=== PATIENT | female | born 1945 | race Two or more races ===

== ENCOUNTER 2018-09-06 12:11 | Inpatient (IN) | payer OTHER ==
[2018-09-06 13:29] LABS: BASO % 0.8 % (0-2.0); EOS % 3.6 % (0-4.5); HEMATOCRIT 40.6 % (32.4-45.2); HEMOGLOBIN 12.8 GM/dL (10.7-15.3); LYMPH % 29.7 % (8-40); MCH 25.7 pg (25.7-33.7); MCHC 31.6 g/dl (32.0-36.0); MEAN CELL VOLUME 81.2 fl (80-96); MEAN PLT VOLUME 9.2 fl (7.5-11.1); MONO % 8.9 % (3.8-10.2); PLATELET COUNT 250 K/MM3 (134-434); RDW 15.3 % (11.6-15.6)
[2018-09-06] MEDS ORDERED: methylPREDNISolone NA SUCC 125 MG/2 ML VIAL IVPUSH ONE (13:34)
[2018-09-06] MEDS ORDERED: ALBUTEROL SO4 2.5/IPRATROPIUM 0.5 INH SOL 3 ML VIAL.NEB. NEB ONE (13:50)
[2018-09-06] MEDS ORDERED: methylPREDNISolone NA SUCC 125 MG/2 ML VIAL ONE (13:51)
[2018-09-06] MEDS: ALBUTEROL SO4 2.5/IPRATROPIUM 0.5 INH SOL 3 ML VIAL.NEB. NEB SCH ×4 (13:53→14:54)
[2018-09-06 13:59] LABS: ALBUMIN 3.6 g/dl (3.4-5.0); ALK PHOS 92 U/L (45-117); ANION GAP 8 MMOL/L (8-16); BILIRUBIN,TOTAL 0.4 mg/dL (0.2-1); BLOOD UREA NITROGEN 12 mg/dL (7-18); CHLORIDE 100 mmol/L (98-107); CO2 33 mmol/L (21-32); CREATININE 0.8 mg/dL (0.55-1.3); GLUCOSE,RANDOM 150 mg/dL (74-106); POTASSIUM 3.5 mmol/L (3.5-5.1); SGOT/AST 30 U/L (15-37); SGPT/ALT 18 U/L (13-61); SODIUM 141 mmol/L (136-145); TOT PROT 7.4 g/dl (6.4-8.2)
--- NOTE | 2018-09-06 14:21 | PDOC ---
History of Present Illness - General Chief Complaint: Shortness of Breath Stated Complaint: CONGESTION Time Seen by Provider: 09/06/18 12:47 History Source: Patient - History of Present Illness Timing/Duration: reports: week Associated Symptoms: reports: cough, shortness of breath, wheezing. denies: earache, fever/chills Past History - Past Medical History Allergies/Adverse Reactions: Allergies Allergy/AdvReac Type Severity Reaction Status Date / Time aspirin Allergy Unknown Verified 09/06/18 12:23 Penicillins Allergy Unknown Verified 09/06/18 12:23 Home Medications: Ambulatory Orders Albuterol Sulfate Inhaler - [Ventolin Hfa Inhaler -] 1 - 2 inh PO QID 09/06/18 Amlodipine Besylate [Norvasc -] 5 mg PO DAILY 09/06/18 Atenolol [Tenormin] 100 mg PO DAILY 09/06/18 Budesonide/Formeterol Fumarate [SYMBICORT 160/4.5mcg -] 1 inh PO BID 09/06/18 Chlorthalidone 50 mg PO DAILY 09/06/18 Montelukast Na [Singulair -] 10 mg PO HS 09/06/18 Omeprazole 20 mg PO DAILY 09/06/18 Rosuvastatin [Crestor -] 10 mg PO DAILY 09/06/18 Asthma: Yes COPD: No Diabetes: No HTN: Yes - Suicide/Smoking/Psychosocial Hx Smoking History: Never smoked Hx Alcohol Use: No Drug/Substance Use Hx: No Substance Use Type: None Review of Systems - Review of Systems Constitutional: No: Chills, Fever Respiratory: Yes: Cough, Shortness of Breath, Wheezing Cardiac (ROS): No: Chest Pain ABD/GI: Yes: Nausea, Vomiting *Physical Exam - Vital Signs Last Vital Signs Temp Pulse Resp BP Pulse Ox 98.5 F 96 H 26 H 163/78 97 09/06/18 12:24 09/06/18 12:24 09/06/18 12:24 09/06/18 12:24 09/06/18 12:24 - Physical Exam General Appearance: Yes: Appropriately Dressed. No: Apparent Distress HEENT: positive: Normal Voice Neck: positive: Supple Respiratory/Chest: positive: Wheezing. negative: Respiratory Distress Cardiovascular: positive: Regular Rate, S1, S2 Gastrointestinal/Abdominal: positive: Soft. negative: Tender Extremity: positive: Normal Inspection. negative: Pedal Edema Integumentary: positive: Dry, Warm Neurologic: positive: Fully Oriented, Alert, Normal Mood/Affect ED Treatment Course - LABORATORY CBC & Chemistry Diagram: 09/06/18 13:20 09/06/18 13:20 - ADDITIONAL ORDERS Additional order review: Laboratory Results 09/06/18 13:20 Sodium 141 Potassium 3.5 Chloride 100 Carbon Dioxide 33 H Anion Gap 8 BUN 12 Creatinine 0.8 Creat Clearance w eGFR > 60 Random Glucose 150 H Calcium 9.0 Total Bilirubin 0.4 AST 30 ALT 18 Alkaline Phosphatase 92 Creatine Kinase 128 Troponin I < 0.02 B-Natriuretic Peptide 63.0 Total Protein 7.4 Albumin 3.6 09/06/18 13:20 RBC 5.00 MCV 81.2 MCHC 31.6 L RDW 15.3 MPV 9.2 Neutrophils % 57.0 Lymphocytes % 29.7 Monocytes % 8.9 Eosinophils % 3.6 Basophils % 0.8 - RADIOLOGY Radiology Studies Ordered: Category Date Time Status CHEST X-RAY PORTABLE* [RAD] Stat Radiology 09/06/18 12:48 Taken - Medications Given in the ED: ED Medications Discontinued Medications Generic Name Dose Route Start Last Admin Trade Name Freq PRN Reason Stop Dose Admin Methylprednisolone Sodium Succinate 125 mg 09/06/18 13:34 09/06/18 14:06 Solu-Medrol - IVPUSH 09/06/18 13:35 125 mg ONCE ONE Administration Medical Decision Making - Medical Decision Making 09/06/18 14:18 73-year-old female, history of hypertension, asthma, no admissions or intubations, uses alb pump and nebulizer machine at home, here with chest tightness and SOB 1 week, similar to her asthma, but not being relieved with asthma meds. Also complaining of dry cough, no chest pain, fever or chills. See exam Asthma flare Tachypneic at triage but stable otherwise w/ diffuse wheezing -duoneb -solumedrol -ekg -cxr -labs -dispo pending 09/06/18 16:27 Labs and CXR unremarkable. On reassessment, patient reports feeling mildly better, but continues to have diffuse wheezing on exam. Will give dose of mag at this time and admit to obs for serial nebs 09/06/18 16:42 *DC/Admit/Observation/Transfer Diagnosis at time of Disposition: Asthma flare Qualifiers: Asthma severity: unspecified severity Asthma persistence: unspecified Qualified Code(s): J45.901 - Unspecified asthma with (acute) exacerbation - Discharge Dispostion Condition at time of disposition: Fair Decision to Admit order: Yes - Referrals - Patient Instructions - Post Discharge Activity
--- NOTE | 2018-09-06 15:02 | EKG ---
Test Reason : Blood Pressure : / mmHG Vent. Rate : 083 BPM Atrial Rate : 083 BPM P-R Int : 180 ms QRS Dur : 076 ms QT Int : 382 ms P-R-T Axes : 060 018 046 degrees QTc Int : 448 ms NORMAL SINUS RHYTHM LOW VOLTAGE QRS POSSIBLE INFERIOR INFARCT , AGE UNDETERMINED ABNORMAL ECG WHEN COMPARED WITH ECG OF 19-MAY-2018 16:04, NONSPECIFIC T WAVE ABNORMALITY NOW EVIDENT IN INFERIOR LEADS NONSPECIFIC T WAVE ABNORMALITY NOW EVIDENT IN ANTERIOR LEADS Confirmed by ANANT ALCOCER MD ([id number]) on 09/06/2018 3:02:11 PM Referred By: Confirmed By:ANANT ALCOCER MD
[2018-09-06] MEDS ORDERED: MAGNESIUM SULF 50% (8.12 MEQ/2 ML-1 GM VIAL) IVPB ONE (16:27)
[2018-09-06] MEDS ORDERED: MAGNESIUM SULF 50% (8.12 MEQ/2 ML-1 GM VIAL) ONE (17:04)
[2018-09-06] MEDS ORDERED: ALBUTEROL SO4 2.5/IPRATROPIUM 0.5 INH SOL 3 ML VIAL.NEB. NEB PRN (19:39)
--- NOTE | 2018-09-06 20:08 | HP ---
CHIEF COMPLAINT: SOB, HODGES, Chest Tightness, Wheeze PCP: Dr. Dill HISTORY OF PRESENT ILLNESS: This is a 73 y/o woman with a PMHx of: Asthma, HTN, GERD, Allergic Rhinitis, OA. Who presents to the ED with her daughter for SOB, HODGES, chest tightness and wheezing x 7 days. Patient is [place] speaking, she requested her daughter translate. Per the daughter, patient reports using her nebulizer machine and her Asthma meds without relief. She reports having difficulty taking steps and doing activities at home without being SOB. Patient denies fever, chills, dizziness, CATALAN, palpitations, AP, N/V/D, constipation, dysuria. Patient denies recent travel or sick contact exposure. ER course was notable for: (1) Chest Xray- No active disease (2) Spo2 97-94% (3) Recent Travel: None PAST MEDICAL HISTORY: See HPI PAST SURGICAL HISTORY: Childbirth Social History: Smoking: Never Alcohol: None Drugs: None Lives at home alone has STERILIZATION TECH, daughter lives close by Family History: Allergies aspirin Allergy (Unknown, Verified 09/06/18 12:23) Penicillins Allergy (Unknown, Verified 09/06/18 12:23) HOME MEDICATIONS: Home Medications Medication Instructions Recorded Albuterol Sulfate Inhaler - 1 - 2 inh PO QID 09/06/18 [Ventolin Hfa Inhaler -] Amlodipine Besylate [Norvasc -] 5 mg PO DAILY 09/06/18 Atenolol [Tenormin] 100 mg PO DAILY 09/06/18 Budesonide/Formeterol Fumarate 1 inh PO BID 09/06/18 [SYMBICORT 160/4.5mcg -] Chlorthalidone 50 mg PO DAILY 09/06/18 Montelukast Na [Singulair -] 10 mg PO HS 09/06/18 Omeprazole 20 mg PO DAILY 09/06/18 Rosuvastatin [Crestor -] 10 mg PO DAILY 09/06/18 REVIEW OF SYSTEMS CONSTITUTIONAL: Absent: fever, chills, diaphoresis, generalized weakness, malaise, loss of appetite, weight change HEENT: Absent: rhinorrhea, nasal congestion, throat pain, throat swelling, difficulty swallowing, mouth swelling, ear pain, eye pain, visual changes CARDIOVASCULAR: Absent: chest pain, syncope, palpitations, irregular heart rate, lightheadedness , peripheral edema RESPIRATORY: cough, shortness of breath, dyspnea with exertion, orthopnea, wheezing, Absent: stridor, hemoptysis GASTROINTESTINAL: Absent: abdominal pain, abdominal distension, nausea, vomiting, diarrhea, constipation, melena, hematochezia GENITOURINARY: Absent: dysuria, frequency, urgency, hesitancy, hematuria, flank pain, genital pain MUSCULOSKELETAL: Absent: myalgia, arthralgia, joint swelling, back pain, neck pain SKIN: Absent: rash, itching, pallor HEMATOLOGIC/IMMUNOLOGIC: Absent: easy bleeding, easy bruising, lymphadenopathy, frequent infections ENDOCRINE: Absent: unexplained weight gain, unexplained weight loss, heat intolerance, cold intolerance NEUROLOGIC: Absent: headache, focal weakness or paresthesias, dizziness, unsteady gait, seizure, mental status changes, bladder or bowel incontinence PSYCHIATRIC: Absent: anxiety, depression, suicidal or homicidal ideation, hallucinations. PHYSICAL EXAMINATION Vital Signs - 24 hr 09/06/18 09/06/18 09/06/18 12:24 15:05 17:22 Temperature 98.5 F 98.4 F Pulse Rate 96 H Pulse Rate [ 102 H 102 H Apical] Respiratory 26 H 20 18 Rate Blood Pressure 163/78 Blood Pressure 157/77 130/75 [Left Arm] O2 Sat by Pulse 97 99 94 L Oximetry (%) GENERAL: Awake, alert, and fully oriented, in no acute distress. HEAD: Normal with no signs of trauma. EYES: Pupils equal, round and reactive to light, extraocular movements intact, sclera anicteric, conjunctiva clear. No lid lag. EARS, NOSE, THROAT: Ears normal, nares patent, oropharynx clear without exudates. Moist mucous membranes. NECK: Normal range of motion, supple without lymphadenopathy, JVD, or masses. LUNGS: Scattered Diffuse wheeze and crackles throughout. No accessory muscle use. HEART: Regular rate and rhythm, normal S1 and S2 without murmur, rub or gallop. ABDOMEN: Obese, soft, nontender, not distended, normoactive bowel sounds, no guarding, no rebound, no masses. No hepatomegaly or splenomegaly. MUSCULOSKELETAL: Normal range of motion at all joints. No bony deformities or tenderness. No CVA tenderness. UPPER EXTREMITIES: 2+ pulses, warm, well-perfused. No cyanosis. No clubbing. No peripheral edema. LOWER EXTREMITIES: 2+ pulses, warm, well-perfused. No calf tenderness. No peripheral edema. NEUROLOGICAL: Cranial nerves II-XII intact. Normal speech. Gait not observed. PSYCHIATRIC: Cooperative. Good eye contact. Appropriate mood and affect. SKIN: Warm, dry, normal turgor, no rashes or lesions noted, normal capillary refill. Laboratory Results - last 24 hr 09/06/18 09/06/18 13:20 13:20 WBC 9.0 RBC 5.00 Hgb 12.8 Hct 40.6 MCV 81.2 MCH 25.7 MCHC 31.6 L RDW 15.3 Plt Count 250 MPV 9.2 Absolute Neuts (auto) 5.2 Neutrophils % 57.0 Lymphocytes % 29.7 Monocytes % 8.9 Eosinophils % 3.6 Basophils % 0.8 Nucleated RBC % 0 Sodium 141 Potassium 3.5 Chloride 100 Carbon Dioxide 33 H Anion Gap 8 BUN 12 Creatinine 0.8 Creat Clearance w eGFR > 60 Random Glucose 150 H Calcium 9.0 Total Bilirubin 0.4 AST 30 ALT 18 Alkaline Phosphatase 92 Creatine Kinase 128 Troponin I < 0.02 B-Natriuretic Peptide 63.0 Total Protein 7.4 Albumin 3.6 ASSESSMENT/PLAN: This is a 73 y/o woman with a PMHx of Asthma, HTN, GERD, Allergic Rhinitis, OA. Placed on Observation for Acute Asthma Exacerbation for further evaluation of their emergent condition. FEN PO fluids as tolerated Replete lytes prn Low Na Diet Code Status: Full Code Dispo: Observation Problem List - Problem (1) Asthma exacerbation Assessment/Plan: Likely secondary to URI Chest Xray- no acute disease Given Solumederol, Magnesium Sulfate, Duonebs in the ED, patient reports some improvement Will continue Solumederol with taper Duonebs Appreciate Pulmonology consult Peak Flow O2 Monitor vitals Monitor CBC, BMP Code(s): J45.901 - UNSPECIFIED ASTHMA WITH (ACUTE) EXACERBATION (2) GERD (gastroesophageal reflux disease) Assessment/Plan: Stable Continue Omeprazole Code(s): K21.9 - GASTRO-ESOPHAGEAL REFLUX DISEASE WITHOUT ESOPHAGITIS (3) Osteoarthritis Assessment/Plan: Tylenol prn Code(s): M19.90 - UNSPECIFIED OSTEOARTHRITIS, UNSPECIFIED SITE (4) Allergic rhinitis Assessment/Plan: stable Consider Saline [place], Singular Code(s): J30.9 - ALLERGIC RHINITIS, UNSPECIFIED Visit type - Emergency Visit Emergency Visit: Yes ED Registration Date: 09/06/18 Care time: The patient presented to the Emergency Department on the above date and was hospitalized for further evaluation of their emergent condition. - New Patient This patient is new to me today: Yes Date on this admission: 09/06/18 - Critical Care Critical Care patient: No
[2018-09-06] MEDS ORDERED: IPRATROPIUM BR 0.02% 0.5 MG/2.5 ML VIAL.NEB. NEB ONE ×2 (20:58→21:04)
[2018-09-06] MEDS ORDERED: BUDESONIDE/FORMETEROL FUMARATE 160/4.5 mcg INHALER IH SCH (22:00)
[2018-09-06] MEDS: MONTELUKAST NA 10 MG TABLET PO SCH (22:26)
[2018-09-06] MEDS: ATENOLOL 50 MG TABLET (FP) PO SCH (22:26)
[2018-09-06] MEDS: ROSUVASTATIN CA 10 MG TABLET (FP) PO SCH (22:27)
[2018-09-07 07:14] LABS: BASO % 0.2 % (0-2.0); HEMATOCRIT 40.2 % (32.4-45.2); HEMOGLOBIN 12.6 GM/dL (10.7-15.3); LYMPH % 16.5 % (8-40); MCH 25.6 pg (25.7-33.7); MCHC 31.5 g/dl (32.0-36.0); MEAN CELL VOLUME 81.5 fl (80-96); MEAN PLT VOLUME 9.1 fl (7.5-11.1); MONO % 3.1 % (3.8-10.2); NEUT % 80.2 % (42.8-82.8); PLATELET COUNT 214 K/MM3 (134-434); RBC 4.93 M/mm3 (3.60-5.2); RDW 15.4 % (11.6-15.6); WHITE BLOOD COUNT 9.3 K/mm3 (4.0-10.0)
[2018-09-07 08:02] LABS: ANION GAP 13 MMOL/L (8-16); BLOOD UREA NITROGEN 15 mg/dL (7-18); CALCIUM 9.3 mg/dL (8.5-10.1); CHLORIDE 99 mmol/L (98-107); CO2 28 mmol/L (21-32); CREATININE 1.1 mg/dL (0.55-1.3); GLUCOSE,RANDOM 242 mg/dL (74-106); POTASSIUM 3.5 mmol/L (3.5-5.1); SODIUM 140 mmol/L (136-145)
[2018-09-07] MEDS ORDERED: PNEUMOC 13-VAL CONJ-DIP CRM/PF 0.5 ML DISP.SYRIN IM ONE (09:00)
[2018-09-07] MEDS: amLODIPine BESYLATE 5 MG TABLET (FP) PO SCH (09:40)
[2018-09-07] MEDS: PANTOPRAZOLE 20 MG TABLET (FP) PO SCH (09:40)
[2018-09-07] MEDS: CHLORTHALIDONE 25 MG TABLET PO SCH (09:41)
[2018-09-07] MEDS: BUDESONIDE/FORMETEROL FUMARATE 80/4.5 mcg INHALER IH SCH ×2 (09:42→22:24)
[2018-09-07] MEDS ORDERED: ATENOLOL 50 MG TABLET (FP) PO SCH (10:00)
--- NOTE | 2018-09-07 10:02 | CON.PULM ---
Consult Consult Specialty:: PULM/CCM Referred by:: HERIBERTO Reason for Consultation:: SOB - History of Present Illness Chief Complaint: SOB History of Present Illness: 73 F, Asthma (never intubated, non-steroid dependent, unknown PEF), HTN, GERD, Allergic Rhinitis, and OA. Admitted via the ED due to SOB, HODGES, chest tightness , and wheezing x 1 week. Apparently she has been using her nebulizer very frequently without relief. No apparent travel history or sick contact. No fever or chills. No night sweats or hemoptysis. She does snore but has never been screened for OSAS. CXR: clear - History Source History Provided By: Patient Limitations to Obtaining History: Language Barrier - Past Medical History Pulmonary: Yes: Asthma, Bronchitis. No: Cancer, COPD, O2 Dependent, Pneumonia, Previously Intubated, Pulmonary Embolus, Pulmonary Fibrosis - Alcohol/Substance Use Hx Alcohol Use: No - Smoking History Smoking history: Never smoked Have you smoked in the past 12 months: No Home Medications - Allergies Allergies/Adverse Reactions: Allergies Allergy/AdvReac Type Severity Reaction Status Date / Time aspirin Allergy Unknown Verified 09/06/18 12:23 Penicillins Allergy Unknown Verified 09/06/18 12:23 - Home Medications Home Medications: Ambulatory Orders Albuterol Sulfate Inhaler - [Ventolin Hfa Inhaler -] 1 - 2 inh PO QID 09/06/18 Amlodipine Besylate [Norvasc -] 5 mg PO DAILY 09/06/18 Atenolol [Tenormin] 100 mg PO DAILY 09/06/18 Budesonide/Formeterol Fumarate [SYMBICORT 160/4.5mcg -] 1 inh PO BID 09/06/18 Chlorthalidone 50 mg PO DAILY 09/06/18 Montelukast Na [Singulair -] 10 mg PO HS 09/06/18 Omeprazole 20 mg PO DAILY 09/06/18 Rosuvastatin [Crestor -] 10 mg PO DAILY 09/06/18 Review of Systems - Review of Systems Constitutional: reports: Malaise. denies: Chills, Fever, Night Sweats Eyes: reports: No Symptoms HENT: reports: No Symptoms Neck: reports: No Symptoms Cardiovascular: reports: Shortness of Breath. denies: Chest Pain, Edema, Palpitations Respiratory: reports: Cough, Snoring, SOB, SOB on Exertion, Wheezing. denies: Hemoptysis Gastrointestinal: reports: No Symptoms Genitourinary: reports: No Symptoms Breasts: reports: No Symptoms Reported Musculoskeletal: reports: No Symptoms Integumentary: reports: No Symptoms Neurological: reports: No Symptoms Endocrine: reports: No Symptoms Hematology/Lymphatic: reports: No Symptoms Psychiatric: reports: No Symptoms Physical Exam Vital Sings: Vital Signs Temperature 98.8 F 09/07/18 09:00 Pulse Rate 78 09/07/18 09:00 Respiratory Rate 18 09/07/18 09:00 Blood Pressure 143/85 09/07/18 09:00 O2 Sat by Pulse Oximetry (%) 96 09/07/18 03:33 Constitutional: Yes: No Distress, Obese Eyes: Yes: Conjunctiva Clear, EOM Intact HENT: Yes: Atraumatic, Normocephalic Neck: Yes: Supple, Trachea Midline Cardiovascular: Yes: Regular Rate and Rhythm Respiratory: Yes: Cough, Diminished, Rhonchi, SOB, SOB on Exertion, Tachypnea, Wheezes. No: Accessory Muscle Use, Rales, Stridor ...Inspection: Yes: WNL ...Clubbing: No Gastrointestinal: Yes: Normal Bowel Sounds, Soft Renal/: Yes: WNL Musculoskeletal: Yes: WNL Extremities: Yes: WNL Edema: No Peripheral Pulses WNL: Yes Integumentary: Yes: WNL Neurological: Yes: WNL, Alert, Oriented ...Motor Strength: WNL Psychiatric: Yes: WNL, Alert, Oriented Labs: CBC, BMP 09/07/18 06:00 09/07/18 06:00 Imaging - Results Chest X-ray: Report Reviewed, Image Reviewed Problem List - Problems (1) Acute bronchitis Code(s): J20.9 - ACUTE BRONCHITIS, UNSPECIFIED (2) Allergic rhinitis Code(s): J30.9 - ALLERGIC RHINITIS, UNSPECIFIED (3) Asthma exacerbation Code(s): J45.901 - UNSPECIFIED ASTHMA WITH (ACUTE) EXACERBATION (4) GERD (gastroesophageal reflux disease) Code(s): K21.9 - GASTRO-ESOPHAGEAL REFLUX DISEASE WITHOUT ESOPHAGITIS (5) Osteoarthritis Code(s): M19.90 - UNSPECIFIED OSTEOARTHRITIS, UNSPECIFIED SITE (6) Hypertension Code(s): I10 - ESSENTIAL (PRIMARY) HYPERTENSION Assessment/Plan Solumedrol IV BD TX standing and PRN Would monitor off ABX O2 as needed VTE prophylaxis Should have sleep apnea screen after discharge PFTs after D/C and stable Will follow Thank you. Dr Bradley
[2018-09-07] MEDS ORDERED: ALBUTEROL SO4 0.083% IH SOL 2.5 MG/3 ML VIAL.NEB. NEB PRN (10:05)
[2018-09-07] MEDS: ALBUTEROL SO4 2.5/IPRATROPIUM 0.5 INH SOL 3 ML VIAL.NEB. NEB SCH ×4 (10:31→21:22)
--- NOTE | 2018-09-07 10:36 | PN ---
Progress Note, Physician Chief Complaint: AWAKE ALERT MILD DISTRESS COUGHING ON NEB MASK EVENTS AND NOTES REVIEWED - Current Medication List Current Medications: Active Medications Albuterol Sulfate (Ventolin 0.083% Nebulizer Soln -) 1 amp NEB Q4H PRN PRN Reason: SHORT OF BREATH/WHEEZING Albuterol/Ipratropium (Duoneb -) 1 amp NEB RQID [facility] Last Admin: 09/07/18 10:31 Dose: 1 amp Amlodipine Besylate (Norvasc -) 5 mg PO DAILY [facility] Last Admin: 09/07/18 09:40 Dose: 5 mg Atenolol (Tenormin -) 100 mg PO HS [facility] Last Admin: 09/06/18 22:26 Dose: 100 mg Budesonide/Formoterol Fumarate (Symbicort 80/4.5mcg -) 2 puff IH BID [facility] Last Admin: 09/07/18 09:42 Dose: 2 puff Chlorthalidone (Hygroton -) 50 mg PO DAILY [facility] Last Admin: 09/07/18 09:41 Dose: 50 mg Methylprednisolone Sodium Succinate (Solu-Medrol -) 60 mg IVPUSH Q8H-IV [facility] Montelukast Sodium (Singulair -) 10 mg PO HS [facility] Last Admin: 09/06/18 22:26 Dose: 10 mg Pantoprazole Sodium (Protonix -) 20 mg PO DAILY [facility] Last Admin: 09/07/18 09:40 Dose: 20 mg Rosuvastatin Calcium (Crestor -) 10 mg PO HS [facility] Last Admin: 09/06/18 22:27 Dose: 10 mg - Objective Vital Signs: Vital Signs Temperature 98.8 F 09/07/18 09:00 Pulse Rate 78 09/07/18 09:00 Respiratory Rate 18 09/07/18 09:00 Blood Pressure 143/85 09/07/18 09:00 O2 Sat by Pulse Oximetry (%) 96 09/07/18 03:33 Constitutional: Yes: Mild Distress Eyes: Yes: WNL HENT: Yes: WNL, Other Cardiovascular: Yes: WNL Respiratory: Yes: Cough, On Nasal O2 Gastrointestinal: Yes: Soft, Abdomen, Obese Genitourinary: Yes: WNL Musculoskeletal: Yes: WNL Extremities: Yes: WNL Edema: No Peripheral Pulses WNL: Yes Integumentary: Yes: WNL Wound/Incision: Yes: Clean/Dry Neurological: Yes: WNL ...Motor Strength: WNL Psychiatric: Yes: WNL Labs: CBC, BMP 09/07/18 06:00 09/07/18 06:00 Problem List - Problems (1) Obesity Code(s): E66.9 - OBESITY, UNSPECIFIED (2) Acute bronchitis Code(s): J20.9 - ACUTE BRONCHITIS, UNSPECIFIED (3) Allergic rhinitis Code(s): J30.9 - ALLERGIC RHINITIS, UNSPECIFIED (4) Asthma exacerbation Code(s): J45.901 - UNSPECIFIED ASTHMA WITH (ACUTE) EXACERBATION (5) GERD (gastroesophageal reflux disease) Code(s): K21.9 - GASTRO-ESOPHAGEAL REFLUX DISEASE WITHOUT ESOPHAGITIS (6) Osteoarthritis Code(s): M19.90 - UNSPECIFIED OSTEOARTHRITIS, UNSPECIFIED SITE (7) Hypertension Code(s): I10 - ESSENTIAL (PRIMARY) HYPERTENSION Assessment/Plan 02 SUPPORT NEBS PULM EVAL STEROIDS ABX OOB TO CHAIR DVT PROPHYLAXIS CHECK A1C
[2018-09-07] MEDS: methylPREDNISolone NA SUCC 40 MG/1 ML VIAL IVPUSH SCH ×2 (11:10→17:20)
[2018-09-07] MEDS ORDERED: PT OWN MED DRAWER 7, Y5N ONE ×2 (17:17→22:24)
[2018-09-07] MEDS: ATENOLOL 50 MG TABLET (FP) PO SCH (22:16)
[2018-09-07] MEDS: MONTELUKAST NA 10 MG TABLET PO SCH (22:16)
[2018-09-07] MEDS: ROSUVASTATIN CA 10 MG TABLET (FP) PO SCH (22:16)
[2018-09-08] MEDS: methylPREDNISolone NA SUCC 40 MG/1 ML VIAL IVPUSH SCH ×3 (01:50→18:06)
[2018-09-08] MEDS: ALBUTEROL SO4 2.5/IPRATROPIUM 0.5 INH SOL 3 ML VIAL.NEB. NEB SCH ×4 (07:41→20:49)
[2018-09-08] MEDS ORDERED: PT OWN MED DRAWER 7, Y5N ONE ×4 (10:02→18:15)
[2018-09-08] MEDS: amLODIPine BESYLATE 5 MG TABLET (FP) PO SCH (10:07)
[2018-09-08] MEDS: PANTOPRAZOLE 20 MG TABLET (FP) PO SCH (10:07)
[2018-09-08] MEDS: BUDESONIDE/FORMETEROL FUMARATE 80/4.5 mcg INHALER IH SCH ×2 (10:07→22:35)
[2018-09-08] MEDS: CHLORTHALIDONE 25 MG TABLET PO SCH (10:09)
--- NOTE | 2018-09-08 14:22 | PN ---
Progress Note, Physician - Current Medication List Current Medications: Active Medications Albuterol Sulfate (Ventolin 0.083% Nebulizer Soln -) 1 amp NEB Q4H PRN PRN Reason: SHORT OF BREATH/WHEEZING Albuterol/Ipratropium (Duoneb -) 1 amp NEB RQID [facility] Last Admin: 09/08/18 11:22 Dose: 1 amp Amlodipine Besylate (Norvasc -) 5 mg PO DAILY [facility] Last Admin: 09/08/18 10:07 Dose: 5 mg Atenolol (Tenormin -) 100 mg PO HS [facility] Last Admin: 09/07/18 22:16 Dose: 100 mg Budesonide/Formoterol Fumarate (Symbicort 80/4.5mcg -) 2 puff IH BID [facility] Last Admin: 09/08/18 10:07 Dose: 2 puff Chlorthalidone (Hygroton -) 50 mg PO DAILY [facility] Last Admin: 09/08/18 10:09 Dose: 50 mg Methylprednisolone Sodium Succinate (Solu-Medrol -) 60 mg IVPUSH Q8H-IV [facility] Last Admin: 09/08/18 10:06 Dose: 60 mg Montelukast Sodium (Singulair -) 10 mg PO HS [facility] Last Admin: 09/07/18 22:16 Dose: 10 mg Pantoprazole Sodium (Protonix -) 20 mg PO DAILY [facility] Last Admin: 09/08/18 10:07 Dose: 20 mg Rosuvastatin Calcium (Crestor -) 10 mg PO HS [facility] Last Admin: 09/07/18 22:16 Dose: 10 mg - Objective Vital Signs: Vital Signs Temperature 98 F 09/08/18 06:05 Pulse Rate 72 09/08/18 06:05 Respiratory Rate 20 09/08/18 06:05 Blood Pressure 115/74 09/08/18 06:05 O2 Sat by Pulse Oximetry (%) 96 09/07/18 21:00 Labs: CBC, BMP 09/07/18 06:00 09/07/18 06:00 Problem List - Problems (1) Obesity Code(s): E66.9 - OBESITY, UNSPECIFIED (2) Acute bronchitis Code(s): J20.9 - ACUTE BRONCHITIS, UNSPECIFIED (3) Allergic rhinitis Code(s): J30.9 - ALLERGIC RHINITIS, UNSPECIFIED (4) Asthma exacerbation Code(s): J45.901 - UNSPECIFIED ASTHMA WITH (ACUTE) EXACERBATION (5) GERD (gastroesophageal reflux disease) Code(s): K21.9 - GASTRO-ESOPHAGEAL REFLUX DISEASE WITHOUT ESOPHAGITIS (6) Osteoarthritis Code(s): M19.90 - UNSPECIFIED OSTEOARTHRITIS, UNSPECIFIED SITE (7) Hypertension Code(s): I10 - ESSENTIAL (PRIMARY) HYPERTENSION
--- NOTE | 2018-09-08 14:22 | PN ---
Progress Note, Physician Chief Complaint: awake alert feeling better - Current Medication List Current Medications: Active Medications Albuterol Sulfate (Ventolin 0.083% Nebulizer Soln -) 1 amp NEB Q4H PRN PRN Reason: SHORT OF BREATH/WHEEZING Albuterol/Ipratropium (Duoneb -) 1 amp NEB RQID [facility] Last Admin: 09/08/18 11:22 Dose: 1 amp Amlodipine Besylate (Norvasc -) 5 mg PO DAILY [facility] Last Admin: 09/08/18 10:07 Dose: 5 mg Atenolol (Tenormin -) 100 mg PO HS [facility] Last Admin: 09/07/18 22:16 Dose: 100 mg Budesonide/Formoterol Fumarate (Symbicort 80/4.5mcg -) 2 puff IH BID [facility] Last Admin: 09/08/18 10:07 Dose: 2 puff Chlorthalidone (Hygroton -) 50 mg PO DAILY [facility] Last Admin: 09/08/18 10:09 Dose: 50 mg Methylprednisolone Sodium Succinate (Solu-Medrol -) 60 mg IVPUSH Q8H-IV [facility] Last Admin: 09/08/18 10:06 Dose: 60 mg Montelukast Sodium (Singulair -) 10 mg PO [facility] Last Admin: 09/07/18 22:16 Dose: 10 mg Pantoprazole Sodium (Protonix -) 20 mg PO DAILY [facility] Last Admin: 09/08/18 10:07 Dose: 20 mg Rosuvastatin Calcium (Crestor -) 10 mg PO [facility] Last Admin: 09/07/18 22:16 Dose: 10 mg - Objective Vital Signs: Vital Signs Temperature 98 F 09/08/18 06:05 Pulse Rate 72 09/08/18 06:05 Respiratory Rate 20 09/08/18 06:05 Blood Pressure 115/74 09/08/18 06:05 O2 Sat by Pulse Oximetry (%) 96 09/07/18 21:00 Constitutional: Yes: Mild Distress Eyes: Yes: WNL HENT: Yes: WNL Neck: Yes: WNL Cardiovascular: Yes: WNL Respiratory: Yes: Wheezes Gastrointestinal: Yes: WNL Genitourinary: Yes: WNL Musculoskeletal: Yes: WNL Extremities: Yes: WNL Edema: Yes Peripheral Pulses WNL: Yes Integumentary: Yes: WNL Wound/Incision: Yes: Clean/Dry Neurological: Yes: WNL ...Motor Strength: WNL Psychiatric: Yes: WNL Labs: CBC, BMP 09/07/18 06:00 09/07/18 06:00 Problem List - Problems (1) Obesity Code(s): E66.9 - OBESITY, UNSPECIFIED (2) Acute bronchitis Code(s): J20.9 - ACUTE BRONCHITIS, UNSPECIFIED (3) Allergic rhinitis Code(s): J30.9 - ALLERGIC RHINITIS, UNSPECIFIED (4) Asthma exacerbation Code(s): J45.901 - UNSPECIFIED ASTHMA WITH (ACUTE) EXACERBATION (5) GERD (gastroesophageal reflux disease) Code(s): K21.9 - GASTRO-ESOPHAGEAL REFLUX DISEASE WITHOUT ESOPHAGITIS (6) Osteoarthritis Code(s): M19.90 - UNSPECIFIED OSTEOARTHRITIS, UNSPECIFIED SITE (7) Hypertension Code(s): I10 - ESSENTIAL (PRIMARY) HYPERTENSION Assessment/Plan 02 SUPPORT NEBS PULM EVAL STEROIDS ABX OOB TO CHAIR DVT PROPHYLAXIS CHECK A1C
--- NOTE | 2018-09-08 16:20 | PN ---
Progress Note, Physician History of Present Illness: pulmonary alert,less congested,+ cough - Current Medication List Current Medications: Active Medications Albuterol Sulfate (Ventolin 0.083% Nebulizer Soln -) 1 amp NEB Q4H PRN PRN Reason: SHORT OF BREATH/WHEEZING Albuterol/Ipratropium (Duoneb -) 1 amp NEB RQID [facility] Last Admin: 09/08/18 11:22 Dose: 1 amp Amlodipine Besylate (Norvasc -) 5 mg PO DAILY [facility] Last Admin: 09/08/18 10:07 Dose: 5 mg Atenolol (Tenormin -) 100 mg PO HS [facility] Last Admin: 09/07/18 22:16 Dose: 100 mg Budesonide/Formoterol Fumarate (Symbicort 80/4.5mcg -) 2 puff IH BID [facility] Last Admin: 09/08/18 10:07 Dose: 2 puff Chlorthalidone (Hygroton -) 50 mg PO DAILY [facility] Last Admin: 09/08/18 10:09 Dose: 50 mg Methylprednisolone Sodium Succinate (Solu-Medrol -) 60 mg IVPUSH Q8H-IV [facility] Last Admin: 09/08/18 10:06 Dose: 60 mg Montelukast Sodium (Singulair -) 10 mg PO [facility] Last Admin: 09/07/18 22:16 Dose: 10 mg Pantoprazole Sodium (Protonix -) 20 mg PO DAILY [facility] Last Admin: 09/08/18 10:07 Dose: 20 mg Rosuvastatin Calcium (Crestor -) 10 mg PO [facility] Last Admin: 09/07/18 22:16 Dose: 10 mg - Objective Vital Signs: Vital Signs Temperature 97.7 F 09/08/18 14:29 Pulse Rate 78 09/08/18 14:29 Respiratory Rate 18 09/08/18 14:29 Blood Pressure 135/68 09/08/18 14:29 O2 Sat by Pulse Oximetry (%) 96 09/07/18 21:00 Constitutional: Yes: Well Nourished, Calm, Obese Eyes: Yes: WNL HENT: Yes: WNL Neck: Yes: WNL Cardiovascular: Yes: Regular Rate and Rhythm, S1, S2 Respiratory: Yes: Wheezes (scattered jake wheezes) Gastrointestinal: Yes: Normal Bowel Sounds, Soft Extremities: Yes: WNL Edema: No Labs: CBC, BMP Assessment/Plan Problem List - Problems (1) Acute bronchitis Code(s): J20.9 - ACUTE BRONCHITIS, UNSPECIFIED (2) Allergic rhinitis Code(s): J30.9 - ALLERGIC RHINITIS, UNSPECIFIED (3) Asthma exacerbation Code(s): J45.901 - UNSPECIFIED ASTHMA WITH (ACUTE) EXACERBATION (4) GERD (gastroesophageal reflux disease) Code(s): K21.9 - GASTRO-ESOPHAGEAL REFLUX DISEASE WITHOUT ESOPHAGITIS (5) Osteoarthritis Code(s): M19.90 - UNSPECIFIED OSTEOARTHRITIS, UNSPECIFIED SITE (6) Hypertension Code(s): I10 - ESSENTIAL (PRIMARY) HYPERTENSION Assessment/Plan Solumedrol IV same dose BD TX standing and PRN Would monitor off ABX O2 as needed VTE prophylaxis sleep screen PFTs after D/C and stable DR BRIGHT
[2018-09-08] MEDS: ATENOLOL 50 MG TABLET (FP) PO SCH (22:35)
[2018-09-08] MEDS: MONTELUKAST NA 10 MG TABLET PO SCH (22:35)
[2018-09-08] MEDS: ROSUVASTATIN CA 10 MG TABLET (FP) PO SCH (22:35)
[2018-09-09] MEDS: methylPREDNISolone NA SUCC 40 MG/1 ML VIAL IVPUSH SCH ×3 (02:10→17:53)
[2018-09-09] MEDS: ALBUTEROL SO4 2.5/IPRATROPIUM 0.5 INH SOL 3 ML VIAL.NEB. NEB SCH ×4 (07:51→20:30)
--- NOTE | 2018-09-09 10:39 | PN ---
Progress Note, Physician Chief Complaint: AWAKE ALERT STILL COUGHING NO FEVER - Current Medication List Current Medications: Active Medications Albuterol Sulfate (Ventolin 0.083% Nebulizer Soln -) 1 amp NEB Q4H PRN PRN Reason: SHORT OF BREATH/WHEEZING Albuterol/Ipratropium (Duoneb -) 1 amp NEB RQID [facility] Last Admin: 09/09/18 07:51 Dose: 1 amp Amlodipine Besylate (Norvasc -) 5 mg PO DAILY [facility] Last Admin: 09/08/18 10:07 Dose: 5 mg Atenolol (Tenormin -) 100 mg PO HS [facility] Last Admin: 09/08/18 22:35 Dose: 100 mg Budesonide/Formoterol Fumarate (Symbicort 80/4.5mcg -) 2 puff IH BID [facility] Last Admin: 09/08/18 22:35 Dose: 2 puff Chlorthalidone (Hygroton -) 50 mg PO DAILY [facility] Last Admin: 09/08/18 10:09 Dose: 50 mg Montelukast Sodium (Singulair -) 10 mg PO [facility] Last Admin: 09/08/18 22:35 Dose: 10 mg Pantoprazole Sodium (Protonix -) 20 mg PO DAILY [facility] Last Admin: 09/08/18 10:07 Dose: 20 mg Rosuvastatin Calcium (Crestor -) 10 mg PO [facility] Last Admin: 09/08/18 22:35 Dose: 10 mg - Objective Vital Signs: Vital Signs Temperature 98.2 F 09/09/18 06:00 Pulse Rate 84 09/09/18 06:00 Respiratory Rate 18 09/09/18 06:00 Blood Pressure 120/65 09/09/18 06:00 O2 Sat by Pulse Oximetry (%) 96 09/07/18 21:00 Constitutional: Yes: Mild Distress Eyes: Yes: WNL HENT: Yes: WNL Neck: Yes: WNL Cardiovascular: Yes: WNL Respiratory: Yes: Cough, Rhonchi Gastrointestinal: Yes: WNL Genitourinary: Yes: WNL Musculoskeletal: Yes: WNL Extremities: Yes: WNL Edema: No Peripheral Pulses WNL: Yes Integumentary: Yes: WNL Wound/Incision: Yes: Clean/Dry Neurological: Yes: WNL ...Motor Strength: WNL Psychiatric: Yes: WNL Labs: CBC, BMP 09/07/18 06:00 09/07/18 06:00 Problem List - Problems (1) Obesity Code(s): E66.9 - OBESITY, UNSPECIFIED (2) Acute bronchitis Code(s): J20.9 - ACUTE BRONCHITIS, UNSPECIFIED (3) Allergic rhinitis Code(s): J30.9 - ALLERGIC RHINITIS, UNSPECIFIED (4) Asthma exacerbation Code(s): J45.901 - UNSPECIFIED ASTHMA WITH (ACUTE) EXACERBATION (5) GERD (gastroesophageal reflux disease) Code(s): K21.9 - GASTRO-ESOPHAGEAL REFLUX DISEASE WITHOUT ESOPHAGITIS (6) Osteoarthritis Code(s): M19.90 - UNSPECIFIED OSTEOARTHRITIS, UNSPECIFIED SITE (7) Hypertension Code(s): I10 - ESSENTIAL (PRIMARY) HYPERTENSION Assessment/Plan 02 SUPPORT NEBS PULM EVAL STEROIDS DECREASED 40MG TID ABX CHANGING TO PO OOB TO CHAIR DVT PROPHYLAXIS CHECK A1C 7.4%
[2018-09-09] MEDS ORDERED: PT OWN MED DRAWER 7, Y5N ONE ×2 (10:44→10:54)
[2018-09-09] MEDS: PANTOPRAZOLE 20 MG TABLET (FP) PO SCH (10:46)
[2018-09-09] MEDS: amLODIPine BESYLATE 5 MG TABLET (FP) PO SCH (10:46)
[2018-09-09] MEDS: BUDESONIDE/FORMETEROL FUMARATE 80/4.5 mcg INHALER IH SCH ×2 (10:47→21:07)
[2018-09-09] MEDS: CHLORTHALIDONE 25 MG TABLET PO SCH (10:47)
[2018-09-09 12:33] LABS: ANION GAP 11 MMOL/L (8-16); BLOOD UREA NITROGEN 28 mg/dL (7-18); CALCIUM 8.3 mg/dL (8.5-10.1); CHLORIDE 99 mmol/L (98-107); CO2 28 mmol/L (21-32); CREATININE 0.9 mg/dL (0.55-1.3); POTASSIUM 3.3 mmol/L (3.5-5.1); SODIUM 138 mmol/L (136-145)
[2018-09-09 13:13] LABS: GLUCOSE,RANDOM 361 mg/dL (74-106)
--- NOTE | 2018-09-09 14:32 | PN ---
Progress Note, Physician History of Present Illness: PULMONARY ALERT,SLOWLY IMPROVING,STILL CONGESTED - Current Medication List Current Medications: Active Medications Albuterol Sulfate (Ventolin 0.083% Nebulizer Soln -) 1 amp NEB Q4H PRN PRN Reason: SHORT OF BREATH/WHEEZING Albuterol/Ipratropium (Duoneb -) 1 amp NEB RQID [facility] Last Admin: 09/09/18 11:54 Dose: 1 amp Amlodipine Besylate (Norvasc -) 5 mg PO DAILY [facility] Last Admin: 09/09/18 10:46 Dose: 5 mg Atenolol (Tenormin -) 100 mg PO HS [facility] Last Admin: 09/08/18 22:35 Dose: 100 mg Budesonide/Formoterol Fumarate (Symbicort 80/4.5mcg -) 2 puff IH BID [facility] Last Admin: 09/09/18 10:47 Dose: 2 puff Chlorthalidone (Hygroton -) 50 mg PO DAILY [facility] Last Admin: 09/09/18 10:47 Dose: 50 mg Methylprednisolone Sodium Succinate (Solu-Medrol -) 40 mg IVPUSH Q8H-IV [facility] Montelukast Sodium (Singulair -) 10 mg PO HS [facility] Last Admin: 09/08/18 22:35 Dose: 10 mg Pantoprazole Sodium (Protonix -) 20 mg PO DAILY [facility] Last Admin: 09/09/18 10:46 Dose: 20 mg Rosuvastatin Calcium (Crestor -) 10 mg PO HS [facility] Last Admin: 09/08/18 22:35 Dose: 10 mg - Objective Vital Signs: Vital Signs Temperature 98.1 F 09/09/18 14:27 Pulse Rate 79 09/09/18 14:27 Respiratory Rate 17 09/09/18 14:27 Blood Pressure 125/65 09/09/18 14:27 O2 Sat by Pulse Oximetry (%) 96 09/07/18 21:00 Constitutional: Yes: Well Nourished, Calm, Obese Eyes: Yes: WNL HENT: Yes: WNL Neck: Yes: WNL Cardiovascular: Yes: Regular Rate and Rhythm, S1, S2 Respiratory: Yes: Rhonchi, Wheezes (BILATERAL WHEEZES AND RHONCHI) Gastrointestinal: Yes: Normal Bowel Sounds, Soft Extremities: Yes: WNL Edema: No Labs: CBC, BMP 09/07/18 06:00 09/09/18 11:00 Assessment/Plan Problem List - Problems (1) Acute bronchitis Code(s): J20.9 - ACUTE BRONCHITIS, UNSPECIFIED (2) Allergic rhinitis Code(s): J30.9 - ALLERGIC RHINITIS, UNSPECIFIED (3) Asthma exacerbation Code(s): J45.901 - UNSPECIFIED ASTHMA WITH (ACUTE) EXACERBATION (4) GERD (gastroesophageal reflux disease) Code(s): K21.9 - GASTRO-ESOPHAGEAL REFLUX DISEASE WITHOUT ESOPHAGITIS (5) Osteoarthritis Code(s): M19.90 - UNSPECIFIED OSTEOARTHRITIS, UNSPECIFIED SITE (6) Hypertension Code(s): I10 - ESSENTIAL (PRIMARY) HYPERTENSION Assessment/Plan Solumedrol IV same dose BD TX standing and PRN Would monitor off ABX O2 as needed VTE prophylaxis sleep screen PFTs after D/C and stable DR BRIGHT
[2018-09-09] MEDS ORDERED: POTASSIUM CHLORIDE TABS 10 MEQ TABLET.ER (FP) PO ONE (15:12)
[2018-09-09] MEDS: INSULIN SLIDING SCALE (NOVOLOG) 1 VIAL SQ SCH ×2 (17:18→21:18)
[2018-09-09] MEDS: ATENOLOL 50 MG TABLET (FP) PO SCH (21:07)
[2018-09-09] MEDS: MONTELUKAST NA 10 MG TABLET PO SCH (21:08)
[2018-09-09] MEDS: ROSUVASTATIN CA 10 MG TABLET (FP) PO SCH (21:08)
[2018-09-10] MEDS: methylPREDNISolone NA SUCC 40 MG/1 ML VIAL IVPUSH SCH ×4 (01:18→21:56)
[2018-09-10] MEDS: INSULIN SLIDING SCALE (NOVOLOG) 1 VIAL SQ SCH ×4 (06:49→22:00)
[2018-09-10] MEDS: ALBUTEROL SO4 2.5/IPRATROPIUM 0.5 INH SOL 3 ML VIAL.NEB. NEB SCH ×4 (07:58→19:32)
[2018-09-10 09:15] VITALS: BMI 42.2
[2018-09-10] MEDS ORDERED: PT OWN MED DRAWER 7, Y5N ONE ×4 (09:24→22:20)
[2018-09-10] MEDS: CHLORTHALIDONE 25 MG TABLET PO SCH (09:29)
[2018-09-10] MEDS: amLODIPine BESYLATE 5 MG TABLET (FP) PO SCH (09:29)
[2018-09-10] MEDS: PANTOPRAZOLE 20 MG TABLET (FP) PO SCH (09:29)
[2018-09-10] MEDS: BUDESONIDE/FORMETEROL FUMARATE 80/4.5 mcg INHALER IH SCH ×2 (09:41→21:56)
[2018-09-10 11:14] LABS: ANION GAP 10 MMOL/L (8-16); BLOOD UREA NITROGEN 24 mg/dL (7-18); CALCIUM 8.4 mg/dL (8.5-10.1); CHLORIDE 100 mmol/L (98-107); CO2 30 mmol/L (21-32); CREATININE 0.9 mg/dL (0.55-1.3); GLUCOSE,RANDOM 219 mg/dL (74-106); MAGNESIUM 2.1 mg/dL (1.8-2.4); POTASSIUM 3.3 mmol/L (3.5-5.1); SODIUM 139 mmol/L (136-145)
--- NOTE | 2018-09-10 12:05 | PN ---
Progress Note, Physician Chief Complaint: AWAKE ALERT FEELING BETTER STILL COUGHING CLEAR MUCUS - Current Medication List Current Medications: Active Medications Albuterol Sulfate (Ventolin 0.083% Nebulizer Soln -) 1 amp NEB Q4H PRN PRN Reason: SHORT OF BREATH/WHEEZING Albuterol/Ipratropium (Duoneb -) 1 amp NEB RQID [facility] Last Admin: 09/10/18 11:59 Dose: 1 amp Amlodipine Besylate (Norvasc -) 5 mg PO DAILY [facility] Last Admin: 09/10/18 09:29 Dose: 5 mg Atenolol (Tenormin -) 100 mg PO HS [facility] Last Admin: 09/09/18 21:07 Dose: 100 mg Budesonide/Formoterol Fumarate (Symbicort 80/4.5mcg -) 2 puff IH BID [facility] Last Admin: 09/10/18 09:41 Dose: 2 puff Chlorthalidone (Hygroton -) 50 mg PO DAILY [facility] Last Admin: 09/10/18 09:29 Dose: 50 mg Insulin Aspart (Novolog Vial Sliding Scale -) 1 vial SQ ACHS [facility]; Protocol Last Admin: 09/10/18 11:21 Dose: 2 unit Methylprednisolone Sodium Succinate (Solu-Medrol -) 40 mg IVPUSH Q8H-IV [facility] Last Admin: 09/10/18 09:29 Dose: 40 mg Montelukast Sodium (Singulair -) 10 mg PO [facility] Last Admin: 09/09/18 21:08 Dose: 10 mg Pantoprazole Sodium (Protonix -) 20 mg PO DAILY [facility] Last Admin: 09/10/18 09:29 Dose: 20 mg Potassium Chloride (K-Dur -) 20 meq PO ONCE ONE Stop: 09/10/18 12:02 Rosuvastatin Calcium (Crestor -) 10 mg PO [facility] Last Admin: 09/09/18 21:08 Dose: 10 mg - Objective Vital Signs: Vital Signs Temperature 98.2 F 09/10/18 10:00 Pulse Rate 71 09/10/18 10:00 Respiratory Rate 18 09/10/18 10:00 Blood Pressure 137/60 09/10/18 10:00 O2 Sat by Pulse Oximetry (%) 98 09/10/18 09:00 Constitutional: Yes: Mild Distress Eyes: Yes: WNL HENT: Yes: WNL Neck: Yes: WNL Cardiovascular: Yes: WNL Respiratory: Yes: On Nasal O2, Rhonchi, Wheezes Gastrointestinal: Yes: WNL Genitourinary: Yes: WNL Musculoskeletal: Yes: WNL Extremities: Yes: WNL Edema: Yes Edema: LLE: Trace, RLE: Trace Integumentary: Yes: WNL Wound/Incision: Yes: Clean/Dry Neurological: Yes: WNL ...Motor Strength: WNL Psychiatric: Yes: WNL Labs: CBC, BMP 09/07/18 06:00 09/10/18 10:25 Problem List - Problems (1) Obesity Code(s): E66.9 - OBESITY, UNSPECIFIED (2) Acute bronchitis Code(s): J20.9 - ACUTE BRONCHITIS, UNSPECIFIED (3) Allergic rhinitis Code(s): J30.9 - ALLERGIC RHINITIS, UNSPECIFIED (4) Asthma exacerbation Code(s): J45.901 - UNSPECIFIED ASTHMA WITH (ACUTE) EXACERBATION (5) GERD (gastroesophageal reflux disease) Code(s): K21.9 - GASTRO-ESOPHAGEAL REFLUX DISEASE WITHOUT ESOPHAGITIS (6) Osteoarthritis Code(s): M19.90 - UNSPECIFIED OSTEOARTHRITIS, UNSPECIFIED SITE (7) Hypertension Code(s): I10 - ESSENTIAL (PRIMARY) HYPERTENSION Assessment/Plan IV ABX/SOLUMEDROL CONTINUE OOB TO CHAIR INCENTIVE SPIROMETRY DVT PROPHYLAXIS [facility] PLANNING TOMORROW
--- NOTE | 2018-09-10 12:10 | PN ---
Progress Note, Physician History of Present Illness: PULMONARY ALERT,LESS DYSPNEIC - Current Medication List Current Medications: Active Medications Albuterol Sulfate (Ventolin 0.083% Nebulizer Soln -) 1 amp NEB Q4H PRN PRN Reason: SHORT OF BREATH/WHEEZING Albuterol/Ipratropium (Duoneb -) 1 amp NEB RQID [facility] Last Admin: 09/10/18 11:59 Dose: 1 amp Amlodipine Besylate (Norvasc -) 5 mg PO DAILY [facility] Last Admin: 09/10/18 09:29 Dose: 5 mg Atenolol (Tenormin -) 100 mg PO HS [facility] Last Admin: 09/09/18 21:07 Dose: 100 mg Budesonide/Formoterol Fumarate (Symbicort 80/4.5mcg -) 2 puff IH BID [facility] Last Admin: 09/10/18 09:41 Dose: 2 puff Chlorthalidone (Hygroton -) 50 mg PO DAILY [facility] Last Admin: 09/10/18 09:29 Dose: 50 mg Insulin Aspart (Novolog Vial Sliding Scale -) 1 vial SQ ACHS [facility]; Protocol Last Admin: 09/10/18 11:21 Dose: 2 unit Methylprednisolone Sodium Succinate (Solu-Medrol -) 40 mg IVPUSH Q8H-IV [facility] Last Admin: 09/10/18 09:29 Dose: 40 mg Montelukast Sodium (Singulair -) 10 mg PO [facility] Last Admin: 09/09/18 21:08 Dose: 10 mg Pantoprazole Sodium (Protonix -) 20 mg PO DAILY [facility] Last Admin: 09/10/18 09:29 Dose: 20 mg Potassium Chloride (K-Dur -) 20 meq PO ONCE ONE Stop: 09/10/18 12:16 Rosuvastatin Calcium (Crestor -) 10 mg PO [facility] Last Admin: 09/09/18 21:08 Dose: 10 mg - Objective Vital Signs: Vital Signs Temperature 98.2 F 09/10/18 10:00 Pulse Rate 71 09/10/18 10:00 Respiratory Rate 18 09/10/18 10:00 Blood Pressure 137/60 09/10/18 10:00 O2 Sat by Pulse Oximetry (%) 98 09/10/18 09:00 Constitutional: Yes: Well Nourished, Calm, Obese Eyes: Yes: WNL HENT: Yes: WNL Neck: Yes: WNL Cardiovascular: Yes: Regular Rate and Rhythm, S1, S2 Respiratory: Yes: Wheezes (SCATTTERED [place] WHEEZES) Gastrointestinal: Yes: Normal Bowel Sounds, Soft Extremities: Yes: WNL Edema: No Labs: CBC, BMP 09/10/18 10:25 Assessment/Plan Problem List - Problems (1) Acute bronchitis Code(s): J20.9 - ACUTE BRONCHITIS, UNSPECIFIED (2) Allergic rhinitis Code(s): J30.9 - ALLERGIC RHINITIS, UNSPECIFIED (3) Asthma exacerbation Code(s): J45.901 - UNSPECIFIED ASTHMA WITH (ACUTE) EXACERBATION (4) GERD (gastroesophageal reflux disease) Code(s): K21.9 - GASTRO-ESOPHAGEAL REFLUX DISEASE WITHOUT ESOPHAGITIS (5) Osteoarthritis Code(s): M19.90 - UNSPECIFIED OSTEOARTHRITIS, UNSPECIFIED SITE (6) Hypertension Code(s): I10 - ESSENTIAL (PRIMARY) HYPERTENSION Assessment/Plan Solumedrol IV same dose BD TX standing and PRN Would monitor off ABX O2 as needed VTE prophylaxis sleep screen PFTs after D/C and stable DR BRIGHT
[2018-09-10] MEDS ORDERED: POTASSIUM CHLORIDE TABS 10 MEQ TABLET.ER (FP) PO ONE (12:15)
--- NOTE | 2018-09-10 12:31 | PN ---
Progress Note, Physician History of Present Illness: PULMONARY ALERT,FEELING BETTER,LESS CONGESTED,LESS COUGH. SLEEP SCREEN AHI 14 C/W MILD - MODERATE TAYLOR - Current Medication List Current Medications: Active Medications Albuterol Sulfate (Ventolin 0.083% Nebulizer Soln -) 1 amp NEB Q4H PRN PRN Reason: SHORT OF BREATH/WHEEZING Albuterol/Ipratropium (Duoneb -) 1 amp NEB RQID [facility] Last Admin: 09/10/18 11:59 Dose: 1 amp Amlodipine Besylate (Norvasc -) 5 mg PO DAILY [facility] Last Admin: 09/10/18 09:29 Dose: 5 mg Atenolol (Tenormin -) 100 mg PO HS [facility] Last Admin: 09/09/18 21:07 Dose: 100 mg Budesonide/Formoterol Fumarate (Symbicort 80/4.5mcg -) 2 puff IH BID [facility] Last Admin: 09/10/18 09:41 Dose: 2 puff Chlorthalidone (Hygroton -) 50 mg PO DAILY [facility] Last Admin: 09/10/18 09:29 Dose: 50 mg Insulin Aspart (Novolog Vial Sliding Scale -) 1 vial SQ ACHS [facility]; Protocol Last Admin: 09/10/18 11:21 Dose: 2 unit Methylprednisolone Sodium Succinate (Solu-Medrol -) 40 mg IVPUSH Q8H-IV [facility] Last Admin: 09/10/18 09:29 Dose: 40 mg Montelukast Sodium (Singulair -) 10 mg PO HS [facility] Last Admin: 09/09/18 21:08 Dose: 10 mg Pantoprazole Sodium (Protonix -) 20 mg PO DAILY [facility] Last Admin: 09/10/18 09:29 Dose: 20 mg Rosuvastatin Calcium (Crestor -) 10 mg PO HS [facility] Last Admin: 09/09/18 21:08 Dose: 10 mg - Objective Vital Signs: Vital Signs Temperature 98.2 F 09/10/18 10:00 Pulse Rate 71 09/10/18 10:00 Respiratory Rate 18 09/10/18 10:00 Blood Pressure 137/60 09/10/18 10:00 O2 Sat by Pulse Oximetry (%) 98 09/10/18 09:00 Constitutional: Yes: Well Nourished, Calm, Obese Eyes: Yes: WNL HENT: Yes: WNL Neck: Yes: WNL Cardiovascular: Yes: Regular Rate and Rhythm, S1, S2 Respiratory: Yes: Wheezes (LESS WHEEZES BILATERALLY) Gastrointestinal: Yes: Normal Bowel Sounds, Soft Extremities: Yes: WNL Edema: No Labs: 09/10/18 10:25 Assessment/Plan Problem List - Problems (1) Acute bronchitis Code(s): J20.9 - ACUTE BRONCHITIS, UNSPECIFIED (2) Allergic rhinitis Code(s): J30.9 - ALLERGIC RHINITIS, UNSPECIFIED (3) Asthma exacerbation Code(s): J45.901 - UNSPECIFIED ASTHMA WITH (ACUTE) EXACERBATION (4) GERD (gastroesophageal reflux disease) Code(s): K21.9 - GASTRO-ESOPHAGEAL REFLUX DISEASE WITHOUT ESOPHAGITIS (5) Osteoarthritis Code(s): M19.90 - UNSPECIFIED OSTEOARTHRITIS, UNSPECIFIED SITE (6) Hypertension Code(s): I10 - ESSENTIAL (PRIMARY) HYPERTENSION Assessment/Plan Taper Solumedrol BD TX standing and PRN Would monitor off ABX O2 as needed VTE prophylaxis Outpatient sleep studies PFTs after D/C and stable DR BRIGHT
[2018-09-10] MEDS: ROSUVASTATIN CA 10 MG TABLET (FP) PO SCH (21:55)
[2018-09-10] MEDS: MONTELUKAST NA 10 MG TABLET PO SCH (21:56)
[2018-09-10] MEDS: ATENOLOL 50 MG TABLET (FP) PO SCH (21:56)
[2018-09-11] MEDS: INSULIN SLIDING SCALE (NOVOLOG) 1 VIAL SQ SCH ×2 (06:22→12:13)
[2018-09-11] MEDS ORDERED: PT OWN MED DRAWER 7, Y5N ONE ×2 (06:47→09:14)
[2018-09-11] MEDS: ALBUTEROL SO4 2.5/IPRATROPIUM 0.5 INH SOL 3 ML VIAL.NEB. NEB SCH ×2 (07:25→11:00)
[2018-09-11 07:36] LABS: ANION GAP 8 MMOL/L (8-16); BLOOD UREA NITROGEN 26 mg/dL (7-18); CALCIUM 8.2 mg/dL (8.5-10.1); CHLORIDE 98 mmol/L (98-107); CO2 33 mmol/L (21-32); CREATININE 0.8 mg/dL (0.55-1.3); GLUCOSE,RANDOM 235 mg/dL (74-106); POTASSIUM 3.4 mmol/L (3.5-5.1); SODIUM 138 mmol/L (136-145)
[2018-09-11] MEDS ORDERED: POTASSIUM CHLORIDE TABS 10 MEQ TABLET.ER (FP) PO ONE (08:37)
--- NOTE | 2018-09-11 08:48 | DS ---
Physical Examination Vital Signs: Vital Signs Temperature 97.9 F 09/11/18 06:00 Pulse Rate 74 09/11/18 06:00 Respiratory Rate 18 09/11/18 06:00 Blood Pressure 149/76 09/11/18 06:00 O2 Sat by Pulse Oximetry (%) 95 09/10/18 21:00 Findings/Remarks: improved breathing, ready for discharge Constitutional: Yes: Mild Distress Eyes: Yes: WNL HENT: Yes: WNL Neck: Yes: WNL Cardiovascular: Yes: WNL Respiratory: Yes: Wheezes Gastrointestinal: Yes: WNL Renal/: Yes: WNL Musculoskeletal: Yes: WNL Extremities: Yes: WNL Edema: No Peripheral Pulses WNL: Yes Integumentary: Yes: WNL Wound/Incision: Yes: Clean/Dry Neurological: Yes: WNL ...Motor Strength: WNL Psychiatric: Yes: WNL Labs: CBC, BMP 09/07/18 06:00 09/11/18 06:30 Discharge Summary Reason For Visit: EXACERBATION OF ASTHMA Current Active Problems Acute bronchitis (Acute) Allergic rhinitis (Acute) Asthma exacerbation (Acute) Asthma flare (Acute) GERD (gastroesophageal reflux disease) (Acute) Obesity (Acute) Osteoarthritis (Acute) Procedures: Principal: labs/cxr Hospital Course: TREATED FOR ACUTE RESP DISTRESS, BRONCHITIS, ACUTE ON CHRONIC COPD EXACERBATION WITH IV ABX, STEROIDS, NEBS Condition: Improved - Instructions Diet, Activity, Other Instructions: SEE DR EM IN 2-3 DAYS FOR LABS AND POTASSIUM CHECK Disposition: HOME - Home Medications Comprehensive Discharge Medication List: Ambulatory Orders Albuterol Sulfate Inhaler - [Ventolin HFA Inhaler -] 1 - 2 inh PO QID 09/06/18 Amlodipine Besylate [Norvasc -] 5 mg PO DAILY 09/06/18 Atenolol [Tenormin] 100 mg PO DAILY 09/06/18 Budesonide/Formeterol Fumarate [SYMBICORT 160/4.5mcg -] 1 inh PO BID 09/06/18 Chlorthalidone 50 mg PO DAILY 09/06/18 Montelukast Na [Singulair -] 10 mg PO HS 09/06/18 Omeprazole 20 mg PO DAILY 09/06/18 Rosuvastatin [Crestor -] 10 mg PO DAILY 09/06/18 Albuterol 2.5/Ipratropium 0.5 [Duoneb -] 1 amp NEB RQID #120 amp 09/11/18 Budesonide/Formeterol Fumarate [SYMBICORT 80/4.5mcg -] 2 puff IH BID #1 inhaler 09/11/18 Methylprednisolone [Medrol Dose Jagjit] 4 mg PO ASDIR #21 tablet 09/11/18
[2018-09-11 09:05] VITALS: BP 138/72; PULSE 71; TEMP 98.8
[2018-09-11] MEDS: amLODIPine BESYLATE 5 MG TABLET (FP) PO SCH (09:59)
[2018-09-11] MEDS: PANTOPRAZOLE 20 MG TABLET (FP) PO SCH (10:00)
[2018-09-11] MEDS: methylPREDNISolone NA SUCC 40 MG/1 ML VIAL IVPUSH SCH (10:00)
[2018-09-11] MEDS: CHLORTHALIDONE 25 MG TABLET PO SCH (10:00)
[2018-09-11] MEDS: BUDESONIDE/FORMETEROL FUMARATE 80/4.5 mcg INHALER IH SCH (10:01)
--- NOTE | 2018-09-11 10:36 | PN ---
Progress Note (short form) - Note Progress Note: PULMONARY States breathing, cough and wheezing improving. Vital Signs Period Temp Pulse Resp BP Sys/Martines Pulse Ox Last 24 Hr 97.8 F-98.8 F 71-86 18-20 138-152/72-83 95 Gen: NAD in chair Heart: RRR Lung: scattered rhonchi Abd: soft, nontender Ext: distal edema CBC, BMP 09/07/18 06:00 09/11/18 06:30 Active Medications Albuterol Sulfate (Ventolin 0.083% Nebulizer Soln -) 1 amp NEB Q4H PRN PRN Reason: SHORT OF BREATH/WHEEZING Albuterol/Ipratropium (Duoneb -) 1 amp NEB RQID [facility] Last Admin: 09/11/18 07:25 Dose: 1 amp Amlodipine Besylate (Norvasc -) 5 mg PO DAILY [facility] Last Admin: 09/11/18 09:59 Dose: 5 mg Atenolol (Tenormin -) 100 mg PO [facility] Last Admin: 09/10/18 21:56 Dose: 100 mg Budesonide/Formoterol Fumarate (Symbicort 80/4.5mcg -) 2 puff IH BID [facility] Last Admin: 09/11/18 10:01 Dose: 2 puff Chlorthalidone (Hygroton -) 50 mg PO DAILY [facility] Last Admin: 09/11/18 10:00 Dose: 50 mg Insulin Aspart (Novolog Vial Sliding Scale -) 1 vial SQ ACHS [facility]; Protocol Last Admin: 09/11/18 06:22 Dose: 2 unit Methylprednisolone Sodium Succinate (Solu-Medrol -) 40 mg IVPUSH BID [facility] Last Admin: 09/11/18 10:00 Dose: 40 mg Montelukast Sodium (Singulair -) 10 mg PO HS [facility] Last Admin: 09/10/18 21:56 Dose: 10 mg Pantoprazole Sodium (Protonix -) 20 mg PO DAILY [facility] Last Admin: 09/11/18 10:00 Dose: 20 mg Rosuvastatin Calcium (Crestor -) 10 mg PO HS [facility] Last Admin: 09/10/18 21:55 Dose: 10 mg A/P Acute Asthma Exacerbation Acute Bronchitis HTN GERD - can change steroids to PO - inhaled bronchodilators - O2 as needed - singulair - outpt PFTs - DVT prophylaxis
== END 2018-09-11 12:30 | disposition home or self-care (01) | DRG 202 ==
LOC: JER 12:11 → J8W 20:39 → OBSVTOIN 09-07 13:38
PROVIDERS: ADMIT Family Medicine; ATTEND Family Medicine
PROC: 3E0F7GC Introduction of Other Therapeutic Substance into Respiratory Tract, Via Natural or Artificial Opening (ICD-10-PCS; principal; 2018-09-07)
DX: J20.9 Acute bronchitis, unspecified (principal); J45.901 Unspecified asthma with (acute) exacerbation; Z68.41 Body mass index [BMI] 40.0-44.9, adult; E66.9 Obesity, unspecified; M19.90 Unspecified osteoarthritis, unspecified site; I10 Essential (primary) hypertension; K21.9 Gastro-esophageal reflux disease without esophagitis; J06.9 Acute upper respiratory infection, unspecified; G47.33 Obstructive sleep apnea (adult) (pediatric)
CPT/HCPCS: 36415; 71045-TC-FY; 77080-TC-FY; 80048; 80053; 82550; 82962; 83036; 83735; 83880; 84484; 85025; 93005; 93010; 94010; 94640; 99284-25; G0378

== ENCOUNTER 2023-08-02 05:03 | Day surgery (SDC) | payer OTHER ==
[2023-08-01 13:32] VITALS: BMI 39.4
[2023-08-02 09:07] VITALS: TEMP 98.2
[2023-08-02 09:20] VITALS: BP 124/60; PULSE 60; RESP 15
== END 2023-08-02 09:20 | disposition home or self-care (01) ==
LOC: JASU-ENDO 05:03
PROVIDERS: ATTEND Student in an Organized Health Care Education/Training Program
PROC: 0DBL8ZX Excision of Transverse Colon, Via Natural or Artificial Opening Endoscopic, Diagnostic (ICD-10-PCS; 2023-08-02)
PROC: 0DBH8ZX Excision of Cecum, Via Natural or Artificial Opening Endoscopic, Diagnostic (ICD-10-PCS; 2023-08-02)
PROC: 0DBK8ZX Excision of Ascending Colon, Via Natural or Artificial Opening Endoscopic, Diagnostic (ICD-10-PCS; principal; 2023-08-02 08:45)
DX: Z12.11 Encounter for screening for malignant neoplasm of colon (principal); K63.5 Polyp of colon; K64.8 Other hemorrhoids; I10 Essential (primary) hypertension
CPT/HCPCS: 82962; 88305-TC

== ENCOUNTER 2023-08-30 14:33 | Emergency (ER) | payer OTHER ==
[2023-08-30 14:55] VITALS: RESP 20; BMI 48.0
[2023-08-30] MEDS ORDERED: DEXAMETHASONE SOD PHOSPHATE 10 MG/1 ML VIAL IM ONE (16:50)
[2023-08-30] MEDS ORDERED: ALBUTEROL SO4 2.5/IPRATROPIUM 0.5 INH SOL 3 ML VIAL.NEB. NEB ONE ×2 (17:10→17:46)
[2023-08-30] MEDS ORDERED: DEXAMETHASONE SOD PHOSPHATE 10 MG/1 ML VIAL ONE (17:10)
[2023-08-30 17:31] VITALS: BP 174/97; PULSE 63; TEMP 97.6
[2023-08-30] MEDS: ALBUTEROL SO4 2.5/IPRATROPIUM 0.5 INH SOL 3 ML VIAL.NEB. NEB SCH ×2 (17:40→17:44)
[2023-08-30 18:02] LABS: BASO % 1.2 % (0-2.0); EOS % 5.9 % (0-4.5); HEMATOCRIT 43.9 % (32.4-45.2); HEMOGLOBIN 14.6 GM/dL (10.7-15.3); LYMPH % 28.4 % (8-40); MCH 24.8 pg (25.7-33.7); MCHC 33.2 g/dl (32.0-36.0); MEAN CELL VOLUME 74.8 fl (80-96); MEAN PLT VOLUME 8.8 fl (7.5-11.1); MONO % 7.8 % (3.8-10.2); NEUT % 56.7 % (42.8-82.8); PLATELET COUNT 255 10^3/uL (134-434); RBC 5.87 M/mm3 (3.60-5.2); RDW 17.1 % (11.6-15.6); WHITE BLOOD COUNT 10.4 K/mm3 (4.0-10.0)
[2023-08-30 18:35] LABS: POTASSIUM 5.1 mmol/L (3.5-5.1)
[2023-08-30 18:37] LABS: CALCIUM 9.2 mg/dL (8.5-10.1)
[2023-08-30 18:38] LABS: ALBUMIN 3.6 g/dl (3.4-5.0); BLOOD UREA NITROGEN 21.1 mg/dL (7-18)
[2023-08-30 18:41] LABS: CREATININE 0.8 mg/dL (0.55-1.3)
[2023-08-30 18:43] LABS: BILIRUBIN,TOTAL 0.6 mg/dL (0.2-1); TOT PROT 7.8 g/dl (6.4-8.2)
[2023-08-30] MEDS ORDERED: ALBUTEROL SO4 0.083% IH SOL 2.5 MG/3 ML VIAL.NEB. NEB ONE ×2 (18:46→19:15)
[2023-08-30] MEDS ORDERED: ALBUTEROL SO4 2.5/IPRATROPIUM 0.5 INH SOL 3 ML VIAL.NEB. NEB SCH ×2 (19:00)
== END 2023-08-30 19:39 | disposition home or self-care (01) ==
LOC: JER 14:33
PROC: 3E023GC Introduction of Other Therapeutic Substance into Muscle, Percutaneous Approach (ICD-10-PCS; principal; 2023-08-30)
PROC: 3E0F7GC Introduction of Other Therapeutic Substance into Respiratory Tract, Via Natural or Artificial Opening (ICD-10-PCS; 2023-08-30)
PROC: 3E0F7GC Introduction of Other Therapeutic Substance into Respiratory Tract, Via Natural or Artificial Opening (ICD-10-PCS; 2023-08-30)
DX: I10 Essential (primary) hypertension (principal); R07.89 Other chest pain; R42 Dizziness and giddiness; J45.901 Unspecified asthma with (acute) exacerbation
CPT/HCPCS: 36415; 71045-TC-FY; 80053; 84484; 85025; 93005; 93010; 99285-25; J1100

== ENCOUNTER 2023-09-25 22:15 | Inpatient (IN) | payer OTHER ==
[2023-09-25 22:22] VITALS: BMI 41.1
[2023-09-25] MEDS ORDERED: ACETAMINOPHEN 1000 MG/100 ML BAG IVPB ONE (23:26)
[2023-09-25 23:44] LABS: EOS % 4.6 % (0-4.5); HEMATOCRIT 43.4 % (32.4-45.2); LYMPH % 27.4 % (8-40); MCH 24.5 pg (25.7-33.7); MCHC 32.3 g/dl (32.0-36.0); MEAN CELL VOLUME 75.7 fl (80-96); MEAN PLT VOLUME 8.9 fl (7.5-11.1); MONO % 9.5 % (3.8-10.2); NEUT % 57.5 % (42.8-82.8); PLATELET COUNT 223 10^3/uL (134-434); RBC 5.73 M/mm3 (3.60-5.2); RDW 18.5 % (11.6-15.6)
[2023-09-25 23:51] LABS: INR 1.04 (0.83-1.09); PROTHROMBIN TIME (PATIENT) 12.1 SEC (9.7-13.0)
[2023-09-25] MEDS ORDERED: ACETAMINOPHEN INJECTION 100 ML IVPB ONE (23:51)
[2023-09-26 00:09] LABS: POTASSIUM 3.9 mmol/L (3.5-5.1)
[2023-09-26 00:11] LABS: CALCIUM 8.9 mg/dL (8.5-10.1)
[2023-09-26 00:12] LABS: ALBUMIN 3.6 g/dl (3.4-5.0); BLOOD UREA NITROGEN 19.6 mg/dL (7-18)
[2023-09-26 00:15] LABS: CREATININE 1.1 mg/dL (0.55-1.3)
[2023-09-26 00:16] LABS: BILIRUBIN,TOTAL 0.6 mg/dL (0.2-1)
[2023-09-26 00:17] LABS: TOT PROT 7.1 g/dl (6.4-8.2)
[2023-09-26 00:20] LABS: N-TERMINAL BNP 31.6 pg/ml (5-450)
[2023-09-26] MEDS ORDERED: EMPAGLIFLOZIN (JARDIANCE) 10 MG TABLET PO SCH (07:00)
[2023-09-26] MEDS ORDERED: PANTOPRAZOLE 40 MG TABLET PO SCH (07:00)
[2023-09-26] MEDS ORDERED: ALBUTEROL SO4 2.5/IPRATROPIUM 0.5 INH SOL 3 ML VIAL.NEB. NEB ONE ×2 (08:37→13:39)
[2023-09-26] MEDS: ALBUTEROL SO4 2.5/IPRATROPIUM 0.5 INH SOL 3 ML VIAL.NEB. NEB SCH ×2 (08:45→13:41)
[2023-09-26] MEDS: INSULIN SLIDING SCALE (NOVOLOG) 1 VIAL SQ SCH ×2 (08:45→12:29)
[2023-09-26] MEDS ORDERED: ATENOLOL 50 MG TABLET (FP) PO SCH (10:00)
[2023-09-26] MEDS ORDERED: LOSARTAN POTASSIUM 50 MG TABLET PO SCH ×2 (10:00)
[2023-09-26] MEDS ORDERED: CHLORTHALIDONE 25 MG TABLET PO SCH (10:00)
[2023-09-26] MEDS ORDERED: CARVEDILOL 3.125 MG TABLET (FP) PO SCH (10:00)
[2023-09-26] MEDS ORDERED: ENOXAPARIN NA (PORCINE) 40 MG/0.4 ML DISP.SYRIN SQ SCH (10:00)
[2023-09-26 13:47] VITALS: RESP 18
[2023-09-26 16:47] VITALS: BP 150/76; PULSE 67; TEMP 97.7
[2023-09-26] MEDS ORDERED: ROSUVASTATIN CA 10 MG TABLET PO SCH (22:00)
[2023-09-26] MEDS ORDERED: MONTELUKAST NA 10 MG TABLET PO SCH (22:00)
== END 2023-09-26 16:57 | disposition home or self-care (01) | DRG 313 ==
LOC: JER 22:15 → JERBED 09-26 00:12 → OBSVTOIN 09-26 02:00
PROVIDERS: ADMIT Internal Medicine; ATTEND Family Medicine
DX: R07.89 Other chest pain (principal); M54.2 Cervicalgia; E11.9 Type 2 diabetes mellitus without complications; I10 Essential (primary) hypertension; E78.5 Hyperlipidemia, unspecified; J45.909 Unspecified asthma, uncomplicated; Z79.84 Long term (current) use of oral hypoglycemic drugs
CPT/HCPCS: 36415; 71045-TC-FY; 80053; 80061; 82550; 82962; 83880; 84484; 85025; 85379; 85610; 93005; 93010; 93306-TC; 94640; 99285-25; G0378